=== PATIENT | male | born 1965 | race Two or more races ===

== ENCOUNTER → 2024-10-21 | Day surgery (SDC) | payer MEDICAID, OTHER ==
[~2024-10-21] VITALS: Ht 170.2 cm; Wt 83.5 kg
[~2024-10-21] MED LIST: ACETAMINOPHEN IV 1000 MG/100ML (10MG/ML) IV PRN; HEPARIN SODIUM (PORCINE) 5000 UNITS/ML 1ML VIAL ONE; HEPARIN SODIUM (PORCINE) 5000 UNITS/ML 1ML VIAL SC ONE; HYDROmorphone HCL 2 MG/ML VL/or syr IV PRN; HYDROmorphone HCL 2 MG/ML VL/or syr ONE; METOCLOPRAMIDE HCL 5MG/ml INJ 2ml VIAL IV PRN; ONDANSETRON HCL 4 MG/2 ML VIAL IV PRN; ONDANSETRON HCL 4 MG/2 ML VIAL ONE; PROPOFOL 10 MG/ML 20 ML IV ONE; ROCURONIUM 10MG/ML 10ML VIAL IV ONE; SUCCINYLCHOLINE CHLORIDE 20 MG/ML 10ML VIAL IV ONE; SUGAMMADEX 200mg/2ml Vial (100MG/ML) IV ONE; ceFAZolin 2 GM/D5W50ml 50 ML IV ONE; fentaNYL CITRATE 100 MCG/2 ML VL ONE
[2024-10-21] MEDS: HEPARIN SODIUM (PORCINE) 5000 UNITS/ML 1ML VIAL ONE (07:10)
[2024-10-21] MEDS: BUPIVACAINE 0.5% P/F INJ 10 ML VIAL ONE (08:15)
[2024-10-21] MEDS: LIDOCAINE 1% HCL (LOCAL ANESTH.) INJ 20ML MDV ONE (08:15)
[2024-10-21 08:44] VITALS: PULSE 84; RESP 17; O2SAT 97
[2024-10-21 08:55] VITALS: PULSE 79; RESP 20; O2SAT 95
[2024-10-21 09:40] VITALS: BP 106/73; PULSE 74; RESP 16; TEMP 98.6; O2SAT 97
--- NOTE | 2024-10-21 10:18 | DVHOP ---
DATE OF SURGERY: 10/21/2024 PREOPERATIVE DIAGNOSIS: Chronic kidney disease. POSTOPERATIVE DIAGNOSIS: Chronic kidney disease. PROCEDURE: Laparoscopic placement of peritoneal dialysis catheter and ligation of abdominal wall vessel. ESTIMATED BLOOD LOSS: Approximately 175 mL. SURGEON: Vadim Patrick MD TEA AND SPICE SUPERVISOR: None. ANESTHESIOLOGIST: Dr. Sampson. ANESTHESIA: General by means of endotracheal intubation. INTRAOPERATIVE FINDINGS: * Adhesions involving the sigmoid colon against the left pelvic wall. * Fully patent pelvic cul-de-sac. * Boggy distended colon. * No acute inflammatory changes or any other abnormality in the abdominopelvic cavity. * Excellent functioning peritoneal dialysis catheter. URINE OUTPUT: Not recorded given a Chapman catheter was not inserted. DRAINS: None. IMPLANTS: 62.5 cm double cuff left-sided swan neck peritoneal dialysis catheter. SPECIMENS: None. 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 Procedure well tolerated and transferred to recovery room in a stable condition. INDICATIONS FOR PROCEDURE: The patient is a 59-year-old male with a history of chronic kidney disease and need for dialysis in the near future. His academic assistant has recommended placement of a peritoneal dialysis catheter. Therefore, he was recommended to undergo laparoscopic placement of peritoneal dialysis catheter. The procedure, risks, and benefits were explained in a detailed and extensive fashion. All questions were answered. He understood and agreed to proceed. DESCRIPTION OF PROCEDURE: The patient was met in the preoperative holding area. He denied any changes since his last visit or questions with regards to the procedure. The patient was taken to the operating room and placed in the dorsal decubitus position on the operating room table once adequate anesthesia was achieved. The left arm was tucked to its side, paying careful attention to providing adequate positioning as well as padding to prevent any potential injuries. The abdomen and pelvis were widely prepped and draped in the usual sterile fashion. It is to be noted that the patient came with a small excoriation of the skin in the intertriginous fold in the right pelvis/inguinal region. This was prepped but excluded from the rest of the surgical field. My attention was then directed towards the periumbilical region where local anesthesia consisting of 1% lidocaine/0.25% Marcaine was infiltrated. The abdominal wall was retracted anteriorly by means of towel clips and a Veress needle was inserted into the abdominal cavity. A pneumoperitoneum of 15 mmHg was achieved. My attention was directed towards the left upper quadrant where a 5 mm trocar was placed. A 5-mm 30-degree laparoscope was inserted into the abdominal cavity. There was no evidence of injury or bleeding upon entry. The Veress needle was removed under direct laparoscopic visualization. At this time, my attention was directed towards the left side of the abdomen where another 5-mm trocar was placed. Both trocars were placed with preemptive local anesthesia. The last trocar was placed under direct laparoscopic visualization. The patient was placed in a steep Trendelenburg position, identifying a patent pelvic cul-de-sac. There was some adhesions involving the sigmoid colon. The sigmoid colon and rectum were distended, seemingly from constipation. At this time, my attention was directed towards the right periumbilical region where an 8 mm trocar was placed with preemptive local anesthesia as well as under direct laparoscopic visualization. The 62.5 cm double cuff swan neck left-sided peritoneal dialysis catheter was placed in the pelvic cul-de-sac through the 8 mm trocar. That trocar was removed leaving the catheter in place. The catheter remained in the pelvic cul-de-sac. The proximal cuff was within the abdominal wall. At this time, the patient was returned to a neutral position. The catheter was tunneled following the P-shaped curve of the catheter with a tunneling device. Upon performing the tunneling, a significant amount of bleeding was noted. 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 This was controlled with several interrupted 0 Vicryl sutures, obtaining adequate hemostasis. Approximately 175 mL were lost. After achieving hemostasis, the catheter was tested by connecting to a cystoscopy line, which in turn connected to 800 mL cystoscopy line, which then connected to a sterile cystoscopy line, which was in turn connected to a 1 liter of sterile saline solution. 800 mL were infused without any obstructive flow. The patient was placed and it is to be noted that the pneumoperitoneum was evacuated. The bag was then placed on the floor and approximately 500 mL of clear fluid was obtained. It was suspected that the patient was not draining well because of the distention of the colon. The laparoscope was inserted into the abdominal cavity after a pneumoperitoneum of 15 mmHg was achieved. The abdominal cavity was inspected. There was no evidence of active bleeding or injury. The catheter remained in the pelvic cul-de-sac and the cuff was within the abdominal wall. At this time, the pneumoperitoneum was evacuated and all the trocars were removed. The wounds were washed and dried. The subcutaneous tissue in the right periumbilical region was closed with 3-0 Vicryl as well as the dermis. The skin was closed with 4-0 Monocryl in a subcuticular fashion. The wounds were washed. The catheter was locked with a 2500 unit of heparinized solution. Sterile dressings were applied. The patient tolerated well procedure. There were no complications. He was successfully extubated in the operating room and transferred to the recovery room in stable condition. MD RICHELLE Banerjee/SONJA TID: [id number] RECEIPT: [id number]
== END | disposition home or self-care (01) ==
LOC: SUR 06:09
DX: I12.0 Hypertensive chronic kidney disease with stage 5 chronic kidney disease or end stage renal disease (principal); N18.6 End stage renal disease; Z98.41 Cataract extraction status, right eye; Z98.42 Cataract extraction status, left eye; Z98.890 Other specified postprocedural states; Z79.899 Other long term (current) drug therapy
CPT/HCPCS: 49324; J0330; J0690; J1171; J1644; J2003; J2405; J2704; J3010; J3490